=== PATIENT | male | born 1980 | race Caucasian/White ===

== ENCOUNTER 2020-01-27 03:32 | Outpatient (CLI) | payer BC, SELFPAY ==
--- NOTE | 2020-01-27 | DI.US_ITS ---
EXAM: US ABDOMEN CLINICAL HISTORY: ABNL LIVER ENZYMES, R74.0, H/O FLUID RETENTION, ? SIGNS OF TECHNIQUE: Ultrasound performed using standard protocol. COMPARISON: No exams were available for comparison FINDINGS: The liver is mildly enlarged. There is mildly diffuse increased echogenicity, consistent with fatty infiltration. There is a 2.8 centimeter solid-appearing mass in the right lobe of the liver. It appe ars mainly circumscribed and hypoechoic. There is slight heterogeneity. No biliary dilatation is se en. The gallbladder appears normal. The tail of the pancreas was not visualized. The spleen, kidne ys and aorta are unremarkable. There is no ascites. IMPRESSION: 1.Mild diffuse fatty infiltration of the liver. 2. 2.8 centimeter solid mass in the right lobe of the liver. Further evaluation with multi phase CT i s recommended. DATA REPOSITORY:
== END 2020-01-27 03:52 ==
PROVIDERS: PCP Family Medicine; Visit Provider Family Medicine
DX: K76.0 Fatty (change of) liver, not elsewhere classified (principal); K76.89 Other specified diseases of liver; R16.0 Hepatomegaly, not elsewhere classified
CPT/HCPCS: 76700

== ENCOUNTER 2020-08-27 00:38 | Outpatient (CLI) | payer BC, SELFPAY ==
--- NOTE | 2020-08-27 | DI.US_ITS ---
EXAM: US ABDOMEN CLINICAL HISTORY: HEMANGIOMA OF LIVER, D18.09 TECHNIQUE: Ultrasound performed using standard protocol. COMPARISON: US US ABDOMEN from 01/27/2020 FINDINGS: Abdominal ultrasound was performed to follow previously noted hypoechoic right hepatic lobe lesion se en on prior ultrasound of January 26 this year. Hypoechoic fairly well-circumscribed mass is again noted and is again seen to be mildly heterogeneous with little if any internal vascular flow visible. Lesion is essentially unchanged in size, measuri ng about 25 millimeters in greatest diameter on current examination is compared to about 28 millimete rs on prior study. No additional hepatic lesion seen. No evidence of cholelithiasis or biliary dila tation. Pancreas poorly visualized. Spleen is unremarkable as seen. Kidneys are unremarkable with no evidence of a renal mass, hydronephrosis, or nephrolithiasis. IMPRESSION: No gross interval change in appearance of indeterminate right hepatic lobe lesion. This is most like ly to represent benign process but malignant lesion is not excluded. Multiphasic hepatic CT recommen ded. If CT is not obtained, an additional follow-up ultrasound would be requested in 6 months. DATA REPOSITORY:
== END 2020-08-27 00:58 ==
PROVIDERS: PCP Family Medicine; Visit Provider Internal Medicine Gastroenterology
DX: D18.03 Hemangioma of intra-abdominal structures (principal)
CPT/HCPCS: 76700

== ENCOUNTER 2021-04-24 01:34 | Outpatient (CLI) | payer BC, SELFPAY ==
--- NOTE | 2021-04-24 | DI.MRI_ITS ---
Exam(s) MR ABDOMEN WO/W EXAM: MR ABDOMEN WO/W CLINICAL HISTORY: F/U ABNL US OF LIVER,BILIARY TRACT,R93.2 TECHNIQUE: Multiplanar multisequence MRA of the Abdomen was performed. CONTRAST MATERIAL: IV Contrast: mL of Dotarem contrast administered. COMPARISON: No exams were available for comparison FINDINGS: Liver: There are 4 hyperintense lesions seen on the T2 weighted images. These lesions are hypointens e on the T1 weighted images the largest is in the posterior segment of the left lobe and measures 2 c m by 2 cm. The next largest is in the anterior segment of the right lobe of the liver and measures 1 .6 x 1.6 cm. Following contrast administration these areas show peripheral enhancement with progress patricia complete opacification occurring over next 15 minutes. The findings are most consistent with hep atic hemangioma. Pancreas: Unremarkable. Gallbladderand Bile Ducts: Unremarkable. Adrenals: Unremarkable. Kidneys: Unremarkable. Spleen: Unremarkable. Aorta: Unremarkable. Soft Tissues: Unremarkable. Bone: Unremarkable. Lymph Nodes: Unremarkable. IMPRESSION: Multiple hepatic hemangioma. DATA REPOSITORY:
[2021-04-24] MEDS: Gadoterate meglumine 20 ML VIAL 17 ML IVP (14:32)
== END 2021-04-24 01:54 ==
PROVIDERS: PCP Family Medicine; Visit Provider Family Medicine
DX: R93.2 Abnormal findings on diagnostic imaging of liver and biliary tract (principal); D18.03 Hemangioma of intra-abdominal structures
CPT/HCPCS: 74183

== ENCOUNTER 2022-03-21 17:41 | Outpatient (REF) | payer BC, SELFPAY ==
[2022-03-23 14:26] LABS: COVID-19 RT-PCR UVMMC Result Negative (Negative)
== END 2022-03-21 17:42 | disposition home or self-care (01) ==
LOC: LBN 17:41
PROVIDERS: PCP Family Medicine; Visit Provider Physician Assistant Medical
DX: Z20.822 Contact with and (suspected) exposure to COVID-19 (principal); J02.9 Acute pharyngitis, unspecified
CPT/HCPCS: U0003

== ENCOUNTER 2022-08-20 14:51 | Outpatient (CLI) | payer BC, SELFPAY ==
--- NOTE | 2022-08-20 13:30 | DI.RAD_ITS ---
Exam(s) XR SHOULDER RT COMPLETE 2+V EXAM: XR SHOULDER RT COMPLETE 2+V CLINICAL HISTORY: right shoulder pain TECHNIQUE: COMPARISON: No exams were available for comparison FINDINGS: Two views were obtained. Cartilaginous joint space of the glenohumeral joint appears fairly well stan ntained. No bony or soft tissue abnormality seen. IMPRESSION: RADIATION DOSE DELIVERED: Total DLP
== END 2022-08-20 14:52 | disposition home or self-care (01) ==
LOC: DIORS 14:51
PROVIDERS: PCP Family Medicine; Referring Provider Family Medicine; Visit Provider Student in an Organized Health Care Education/Training Program
DX: M25.511 Pain in right shoulder (principal)
CPT/HCPCS: 73030

== ENCOUNTER 2023-10-14 15:35 | Emergency (ER) | payer BC, SELFPAY ==
[2023-10-14 15:37] VITALS: BP 173/99; PULSE 84; RESP 18; TEMP 36.4; O2SAT 100
--- NOTE | 2023-10-14 15:49 | ED.GENADUL_ITS ---
Discharge Plan Disposition Patient Disposition: Home Condition: Stable Discharge Details Clinical Impression: Scalp laceration Primary Care Provider: French Perez ED Provider: Joseph Starkey Home Meds and New Rx's Prescriptions: Continued famotidine 20 mg tablet 20 mg PO DAILY budesonide-formoterol [Symbicort] 160-4.5 mcg/actuation HFA aerosol inhaler 2 puff inhalation BID melatonin 12 mg tablet 12 mg PO QHS ascorbic acid (vitamin C) 1,000 mg tablet 1 g PO BID albuterol sulfate 90 mcg/actuation HFA aerosol inhaler 1 inh inhalation Q6H PRN diphenhydramine-acetaminophen [Tylenol PM Extra Strength] 25-500 mg tablet 1 tab PO QHS PRN mometasone [Nasonex] 17 GM spray,non-aerosol 2 spry NS BID Discharge Instructions Instructions: Laceration (ED), Skin Adhesive Care (ED) Additional Instructions: You were seen in the emergency department for your very superficial abrasion of your scalp in your hairline. It was your preference to repair this with skin glue which is reasonable as there was no active bleeding and the edges were not fully open, your wound did not pull apart with manual traction. Please take extra care of the wound as it is not in your hair and you do have a glue, try not to disturb the area for the first 48 hours to let the wound adhered to itself. Apply additional [id number] Dermabond as needed, take Tylenol 1000 mg 4 times per day for headache, please return for any signs of infection like increasing redness, purulent drainage from the area, signs of worsening altered mentation like repetitive questioning, profound lethargy, visual disturbances. It is likely that you have a minor concussion and some level of nausea could be normal, it is best to avoid overstimulation of loud noises and bright lights while recovering from concussion, perform brain rest as needed. Referrals: French Perez [Primary Care Provider] - Discharge Data Discharge Date/Time-TO BE ENTERED AT DEPARTURE: 10/14/23 16:33 Medical Decision Making This dictation utilizes [id number] dictation software and may contain unedited grammatical errors. 42 y/o M presents to ED today with a chief complaint of frontal laceration in hairline of scalp, very superficial- edges do not pull apart with manual tr action, no active bleeding. Happened while setting fenceposts with a maul. Onset and characteristics include no active bleeding- mild dizziness, nausea without vomiting, no altered mentation. Patients' medical history: noncontributory. Family and social history: noncontributory. Pertinent exam findings / vital signs include 4.5cm very superficial vertical linear laceration central forehead toward crown, does not pull apart with manual traction, no active bleeding, no gross contamination. Differential / pathologies of concern include laceration, concussion syndrome. Diagnostic studies of: -none. Interventions of: -DermaBond repair- counseled patient on suture vs staple vs dermabond- he was adamant of skin glue instead of sutures, advised sutures could not be placed after today's visit if he went with glue - the wound is reasonable for this closure as it is not fully through the epidermis. ED Course: Counseled the patient on caring for his glued wound very gently for the first 3 to 4 days, strict return for signs of infection. Findings not consistent with gross contamination, significant TBI, CT Head negative per [place] CT. Disposition of Scalp Laceration. Assessment/Plan: Patient will be very gentle with the area, therefore the skin glue and reapply any [id number] Dermabond as needed but I did advise him to be extremely careful with this area and he has close monitoring with his mother for any signs of infection or redness spreading out from the area, he opted against sutures as a personal preference and if the wound had been more significant I would have advised for sutures but it is reasonable to attempt for this very superficial laceration. Patient verbalized understanding of the plan and return to ED criteria and engaged in shared decision making. Medical Records Medical records reviewed: Yes I reviewed the patient's medical records. HPI General Date/Time Provider Initiated Documentation: 10/14/23 15:40 . HPI Narrative: 42 year-old male presents to ED today by POV/ambulating with a chief complaint of forehead/hairline laceration while setting fence-posts with a maul with onset just prior to arrival. States he slipped and struck his head on the maul- causing a laceration. Quality described as mildly dizzy, nauseous, but denies LOC, denies visual changes, no post-event vomiting, no radiation to weakness, lethargy, repetitive questioning, agitation. Severity is described as 4-5/10. Palliating factors include direct pressure with complete relief of bleeding. Provoking factors include nothing specific. Events leading up to the incident/Associated Symptoms: Patients' last Tdap was 2 months ago. Patient not anticoagulated. Related Data Home Medications Medication Instructions Recorded Confirmed mometasone 50 mcg/actuation nasal 2 spry NS BID 03/21/16 10/14/23 spray (Nasonex) albuterol sulfate 90 mcg/actuation 1 inh inhalation Q6H PRN 07/23/22 10/14/23 aerosol inhaler ascorbic acid (vitamin C) 1,000 mg 1 g PO BID 07/23/22 10/14/23 tablet budesonide-formoterol HFA 160 2 puff inhalation BID 07/23/22 10/14/23 mcg-4.5 mcg/actuation aerosol inhaler (Symbicort) diphenhydramine 25 1 tab PO QHS PRN 07/23/22 10/14/23 mg-acetaminophen 500 mg tablet (Tylenol PM Extra Strength) famotidine 20 mg tablet 20 mg PO DAILY 07/23/22 10/14/23 melatonin 12 mg tablet 12 mg PO QHS 07/23/22 10/14/23 Allergies Allergy/AdvReac Type Severity Reaction Status Date / Time atorvastatin [From Lipitor] AdvReac Intermediate muscle Verified 10/14/23 15:43 cramps General Stated Complaint: Laceration THELMA: 3 Review of Systems All systems reviewed & are unremarkable except as noted in HPI and below PFSH All Active Problems (Updated 10/14/23 @ 16:26 by GERI Burnett) Scalp laceration (Acute) Tendinitis of long head of biceps brachii of right shoulder (Acute) Superior labrum tmvsahlb-qf-ertrieltz (SLAP) tear of right shoulder (Acute) Instability of right shoulder joint (Acute) Psoriasis (Chronic) GERD (gastroesophageal reflux disease) (Chronic) Dyspnea (Acute) Palpitations (Acute) Chest pain (Acute) Hyperlipidemia (Acute) Focal nodular hyperplasia of liver (Acute) Exudative tonsillitis (Acute) Sinusitis (Acute) Pharyngitis (Acute) Social History Smoking/Tobacco Use Status: Never Smoking risk assessment performed?: Yes Alcohol Intake: current Alcohol Intake frequency: holidays/special occasions only Drug use: Never Substance use type: marijuana Housing: house Do you feel safe at home: Yes Do you feel safe in your relationship?: Yes Exam Narrative Exam Narrative: GENERAL APPEARANCE: Well-nourished, non-toxic, awake and alert, atraumatic, no acute distress. SKIN: Warm, pink, dry, intact, without rashes/lesions/ulcerations. HEAD: Normocephalic, normal hair distribution for gender/age. 4.5cm vertical linear superficial laceration from the hairline in central forehead extending toward the crown of head in the hair- edges aligned very well, edges do not pull apart with manual traction, no active bleeding, no periorbital ecchymosis, no large scalp hematoma EYES: Pupils PERRLA, EOMs intact without nystagmus, normal conjunctiva, no exudates on lids/lashes. ENT: Nares patent, no circumoral cyanosis, no facial swelling NECK: Supple, trachea midline, painless cervical ROM. LUNGS/CHEST: Non-labored respirations, normal A/P diameter, symmetrical expansion, no chest wall deformity HEART (CV/PV): No peripheral edema, no JVD. ABDOMEN: Soft, non-distended, no guarding. MSK: Normal ROM, no swelling/deformity to bilateral UEs or LEs, moving all extremities without weakness, no cyanosis, spine midline without tenderness, normal curvature. NEURO: Mental Status AAOx4 - alert to person, place, time, events No facial droop, no forehead involvement. Motor: No focal weakness - strength 5/5 in bilateral UEs and LEs, proximal and distal, symmetric. Sensory: sensation intact to light touch globally. Gait normal: patient ambulated without ataxia into ED room. PSYCH: euthymic, cooperative, pleasant, appropriate speech Course Vital Signs Vital signs: Vital Signs Temperature 36.4 C L 10/14/23 15:37 Pulse 84 10/14/23 15:37 Respiratory Rate 18 10/14/23 15:37 Blood Pressure 173/99 H 10/14/23 15:37 Pulse Oximetry 100 10/14/23 15:37 Temperature 36.4 C L 10/14/23 15:37 Temperature Source Tympanic 10/14/23 15:37 Pulse 84 10/14/23 15:37 Respiratory Rate 18 10/14/23 15:37 Respiratory Effort Normal 10/14/23 15:39 Blood Pressure 173/99 H 10/14/23 15:37 Pulse Oximetry 100 11/22/23 15:37 Procedures Laceration Laceration 1: Site: scalp Size (cm): 4.5 Description: linear and clean Depth: simple, single layer Pre-repair: irrigated extensively Skin layer closed with: other (DermaBond x3 layers)
[2023-10-14 16:33] VITALS: BP 149/99; PULSE 76; RESP 18; O2SAT 98
== END 2023-10-14 16:33 | disposition home or self-care (01) ==
PROVIDERS: Emergency Provider Physician Assistant; PCP Family Medicine
DX: S01.01XA Laceration without foreign body of scalp, initial encounter (principal); W22.8XXA Striking against or struck by other objects, initial encounter
CPT/HCPCS: 12002

== ENCOUNTER 2024-11-11 00:24 | Outpatient (CLI) | payer BC, SELFPAY ==
--- NOTE | 2024-11-11 | DI.MRI_ITS ---
Exam(s) MR ABDOMEN WO/W EXAM: MR ABDOMEN WO/W CLINICAL HISTORY: RUQ pain, R10.11; GI bleed, K92.2; Abnl radiology study of liver, R93.2 TECHNIQUE: Multiplanar multisequence MRI of the Abdomen was performed. CONTRAST MATERIAL: IV Contrast: 17 mL of Dotarem contrast administered. COMPARISON: MR MR ABDOMEN WO/W from 04/24/2021 FINDINGS: Liver: There again seen hepatic lesions which are hyperintense on the T2 weighted images. There are stable in size. The largest is in the posterior aspect of the right lobe of the liver and measures 1 .9 x 2.0 cm. This is unchanged. (Series 4001, image 23). The next largest lesion is in the anterio r segment of the right lobe of the liver and measures 1.6 x 1.4 cm (series 4001, image 19). This is also unchanged. There is a stable 9 mm lesion present (series 5001, image 20). There is also 5 mm l esion in the caudal aspect of the right lobe (series 5001, image 29). These all show characteristic progressive enhancement following contrast administration and are consistent with hemangiomas. The a lso complete enhancement on the 15 minutes delayed images. Pancreas: Unremarkable. No evidence of a pancreatic mass or peripancreatic fluid collection. Gallbladder and Bile Ducts: No cholelithiasis or biliary ductal dilatation. Adrenals: Unremarkable. Kidneys: There is a tiny 3 mm simple cyst in the midpole of the right kidney. No follow-up is recomm ended. No suspicious renal masses or obstructive uropathy is present. Spleen: Unremarkable. Bowel: No evidence of bowel obstruction or bowel wall thickening. The stomach is incompletely disten ded limiting evaluation. Aorta: Unremarkable. Soft Tissues: Unremarkable. Bone: Unremarkable. Lymph Nodes: Unremarkable. IMPRESSION: Stable hepatic hemangiomas. DATA REPOSITORY:
[2024-11-11] MEDS: Normal Saline - Diluent 50 ML VIAL 25 ML IJ (07:54)
[2024-11-11] MEDS: Gadoterate meglumine 20 ML VIAL 17 ML IVP (07:54)
== END 2024-11-11 00:44 ==
LOC: DI 00:24
PROVIDERS: PCP Family Medicine; Visit Provider Internal Medicine Gastroenterology
DX: D18.03 Hemangioma of intra-abdominal structures (principal)
CPT/HCPCS: 74183

== ENCOUNTER 2025-03-06 00:56 | Outpatient (CLI) | payer BC, SELFPAY ==
--- NOTE | 2025-03-06 | DI.RAD_ITS ---
Exam(s) XR FOOT LT COMPLETE XR FOOT RT COMPLETE EXAM: XR FOOT LT COMPLETE CLINICAL HISTORY: FOOT PAIN, EVAL FOR EROSIVE DISEASE,PSORIATIC ARTHRITIS,l40.50. TECHNIQUE: 2D digital imaging was performed. Three views. COMPARISON: CR XR FOOT RT COMPLETE from 03/06/2025 FINDINGS: BONES: No acute fracture is present. No bony destructive lesion is seen. Small heel spurs bilateral ly. JOINTS: No dislocation present. No joint space narrowing. Minimal spurring at the lateral aspect o f the 1st MTP joints. SOFT TISSUE: Normal. IMPRESSION: Small heel spurs. No evidence of bony erosions. DATA REPOSITORY: RADIATION DOSE DELIVERED:
--- NOTE | 2025-03-06 | DI.RAD_ITS ---
Exam(s) XR SACROILIAC JOINTS EXAM: XR SACROILIAC JOINTS CLINICAL HISTORY: LOW BACK PAIN, EVAL FOR SACROILITIS,PSORIATIC ARTHRITIS,L40.50. TECHNIQUE: 2D digital imaging was performed. Three views. COMPARISON: No exams were available for comparison FINDINGS: Bones: No fracture is present. No bony destructive lesion is seen. Alignment is satisfactory. SI Joint: No fusion, erosions or sclerosis is seen. Soft Tissue: Normal. IMPRESSION: Normal radiographs of the SI Joints. DATA REPOSITORY: RADIATION DOSE DELIVERED:
--- NOTE | 2025-03-06 | DI.RAD_ITS ---
Exam(s) XR ARTHRITIS SERIES EXAM: XR ARTHRITIS SERIES CLINICAL HISTORY: PSORIATIC ARTHRITIS,L40.50,HAND PAIN,STIFFNESS,EVALUAT FOR EROSIVE DISEASE. TECHNIQUE: 2D digital imaging was performed. Two views of both hands. COMPARISON: CR RIGHT HAND COMPLETE from 06/12/2009 FINDINGS: BONES: No acute fracture is present. No erosive or productive bony lesions are seen. JOINTS: No dislocation present. SOFT TISSUE: Normal. IMPRESSION: Unremarkable radiographs of the bilateral hands. DATA REPOSITORY: RADIATION DOSE DELIVERED:
== END 2025-03-06 01:16 ==
LOC: DI 00:56
PROVIDERS: PCP Family Medicine; Visit Provider Internal Medicine Rheumatology
DX: M54.50 Low back pain, unspecified (principal); L40.50 Arthropathic psoriasis, unspecified; M77.32 Calcaneal spur, left foot; M25.572 Pain in left ankle and joints of left foot; M79.641 Pain in right hand; M79.642 Pain in left hand
CPT/HCPCS: 72202; 73120; 73630